=== PATIENT | male | born 1990 | race Caucasian/White ===

== ENCOUNTER 2017-02-08 22:37 | Emergency (ER) | payer SELFPAY ==
[~2017-02-08] VITALS: Ht 177.8 cm; Wt 68.2 kg
[2017-02-09] MEDS ORDERED: MORPHINE SULFATE 4 MG/ML SYRINGE IVP ONE (00:15)
[2017-02-09 01:26] VITALS: BP 145/85
== END 2017-02-09 02:05 | disposition home or self-care (01) ==
LOC: EMS 22:38
DX: S01.01XA Laceration without foreign body of scalp, initial encounter (principal); S43.101A Unspecified dislocation of right acromioclavicular joint, initial encounter; V19.9XXA Pedal cyclist (driver) (passenger) injured in unspecified traffic accident, initial encounter; Y93.89 Activity, other specified; Y92.89 Other specified places as the place of occurrence of the external cause; Y99.8 Other external cause status
CPT/HCPCS: 12001; 70450; 73030; 96374; 99284; J2270